=== PATIENT | female | born 1940 | race Caucasian/White ===

== ENCOUNTER 2022-01-01 10:57 | Inpatient (IN) | payer MEDICARE ==
[2022-01-01 11:48] LABS: #Eosinphils 0.1 10x3/uL (0.0-0.5); #Monocytes 0.7 10x3/uL (0.0-1.1); #Neutrophils 6.8 10x3/uL (1.5-8.4); %Basophils 0.3 % (0.0-2.0); %Eosinophils 0.6 % (0.0-6.0); %Lymphocytes 16.1 % (18.0-47.0); %Monocytes 7.8 % (0.0-10.0); %Neutrophils 74.8 % (40.0-75.0); Hemoglobin 9.2 g/dL (12.0-15.5); Mean Corpuscular HGB CONC 31.6 g/dL (32.0-36.0); Mean Corpuscular Volume 91.8 fl (81.6-98.3); Mean Platelet Volume 11.2 fl (7.4-10.4); Platelet Count 150 10x3/uL (150-450); RBC Distribution Width 17.1 % (11.5-14.5); Red Blood Cell (RBC) Count 3.17 10x6/uL (3.90-5.03); White Blood Cell (WBC) Count 9.1 10x3/uL (3.5-10.5)
[2022-01-01 12:06] LABS: ALT (SGPT) 17 U/L (8-55); AST (SGOT) 37 U/L (5-34); Albumin 3.4 g/dL (3.4-4.8); Alkaline Phosphatase 142 U/L (40-110); Anion Gap 14 mmol/L (10-20); BUN (Urea Nitrogen) 32 mg/dL (9.8-20.1); Bilirubin, Total 1.3 mg/dL (0.2-1.2); CK (CPK) 86 U/L (29-168); Calc. Creatinine Clearance 0 mL/min (70-130); Calcium 8.9 mg/dL (7.8-10.44); Carbon Dioxide 24 mmol/L (23-31); Chloride 106 mmol/L (98-107); Estimated GFR 27; Globulin 3.6 g/dL (2.4-3.5); Glucose 86 mg/dL (83-110); Potassium 4.5 mmol/L (3.5-5.1); Sodium 139 mmol/L (136-145)
[2022-01-01 12:33] LABS: CKMB 1.8 ng/mL (0-6.6)
[2022-01-01 12:48] LABS: Bilirubin Neg (Negative); Blood, Urine 25 (Negative); Clarity Slightly Cloudy (Clear); Glucose, Urine (Dipstick) Normal (Negative); Ketone, Urine Negative (Negative); Leukocyte 500 (Negative); Nitrite Positive (Negative); Protein, Urine (Dipstick) Negative (Neg-Trace)
[2022-01-01 13:02] LABS: Bacteria/HPF 4+ HPF (None Seen); Mucous/LPF 1+ LPF (<2+); WBC/HPF 21-50 HPF (0-3)
[2022-01-01] MEDS ORDERED: cefTRIAXone\\ROCEPHIN 1 GM VIAL ONE (13:41)
[2022-01-01] MEDS ORDERED: Ondansetron ODT 4 MG TAB PO PRN (16:00)
[2022-01-01 16:33] LABS: SARS-CoV-2 NAA Rapid Test Not Detected (NotDetected)
[2022-01-01 20:31] VITALS: BMI 28.2
[2022-01-02] MEDS: traZODone HCl 50 MG TAB PO SCH ×2 (00:51→02:45)
[2022-01-02 06:49] LABS: #Basophils 0.1 10x3/uL (0.0-0.2); #Eosinphils 0.1 10x3/uL (0.0-0.5); #Monocytes 0.8 10x3/uL (0.0-1.1); #Neutrophils 6.9 10x3/uL (1.5-8.4); %Basophils 0.5 % (0.0-2.0); %Eosinophils 1.4 % (0.0-6.0); %Lymphocytes 15.2 % (18.0-47.0); %Monocytes 8.3 % (0.0-10.0); %Neutrophils 74.3 % (40.0-75.0); Hemoglobin 9.9 g/dL (12.0-15.5); Mean Corpuscular HGB CONC 30.7 g/dL (32.0-36.0); Mean Corpuscular Hemoglobin 28.7 pg (27.0-33.0); Mean Corpuscular Volume 93.3 fl (81.6-98.3); Mean Platelet Volume 11.3 fl (7.4-10.4); Platelet Count 151 10x3/uL (150-450); RBC Distribution Width 17.2 % (11.5-14.5); Red Blood Cell (RBC) Count 3.45 10x6/uL (3.90-5.03); White Blood Cell (WBC) Count 9.3 10x3/uL (3.5-10.5)
[2022-01-02 10:51] LABS: Anion Gap 13 mmol/L (10-20); BUN (Urea Nitrogen) 27 mg/dL (9.8-20.1); Calc. Creatinine Clearance 37 mL/min (70-130); Calcium 9.7 mg/dL (7.8-10.44); Carbon Dioxide 24 mmol/L (23-31); Chloride 106 mmol/L (98-107); Estimated GFR 39; Glucose 80 mg/dL (83-110); Potassium 4.2 mmol/L (3.5-5.1); Sodium 139 mmol/L (136-145)
[2022-01-02] MEDS: Ferrous Sulfate 325 MG TAB PO SCH (13:47)
[2022-01-02] MEDS: cefTRIAXone\\ROCEPHIN 1 GM in Sodium Chloride 0.9% 100 ML IVPB SCH (15:53)
[2022-01-02] MEDS: Apixaban 2.5 MG TAB PO SCH (21:21)
[2022-01-02] MEDS: Atorvastatin Calcium 20 MG TAB PO SCH (21:21)
[2022-01-02] MEDS ORDERED: diphenhydrAMINE 25 MG CAP PO PRN (23:33)
[2022-01-03] MEDS: Acetaminophen 325 MG TAB PO PRN ×3 (04:34→15:09)
[2022-01-03 04:49] LABS: #Eosinphils 0.2 10x3/uL (0.0-0.5); #Monocytes 0.6 10x3/uL (0.0-1.1); %Basophils 0.5 % (0.0-2.0); %Eosinophils 2.5 % (0.0-6.0); %Monocytes 7.5 % (0.0-10.0); %Neutrophils 71.3 % (40.0-75.0); Hemoglobin 9.6 g/dL (12.0-15.5); Mean Corpuscular HGB CONC 31.9 g/dL (32.0-36.0); Mean Corpuscular Volume 90.9 fl (81.6-98.3); Platelet Count 159 10x3/uL (150-450); RBC Distribution Width 16.9 % (11.5-14.5); Red Blood Cell (RBC) Count 3.31 10x6/uL (3.90-5.03); White Blood Cell (WBC) Count 8.4 10x3/uL (3.5-10.5)
[2022-01-03 05:18] LABS: Anion Gap 14 mmol/L (10-20); BUN (Urea Nitrogen) 24 mg/dL (9.8-20.1); Calc. Creatinine Clearance 38 mL/min (70-130); Calcium 8.9 mg/dL (7.8-10.44); Carbon Dioxide 22 mmol/L (23-31); Chloride 104 mmol/L (98-107); Estimated GFR 40; Glucose 90 mg/dL (83-110); Potassium 4.2 mmol/L (3.5-5.1); Sodium 136 mmol/L (136-145)
[2022-01-03] MEDS: Levothyroxine Sodium 75 MCG TAB PO SCH (05:43)
[2022-01-03] MEDS: Losartan 25 MG TAB PO SCH (09:17)
[2022-01-03] MEDS: Calcitriol 0.25 MCG CAP PO SCH (09:18)
[2022-01-03] MEDS: Amlodipine 5 MG TAB PO SCH (09:18)
[2022-01-03] MEDS: Torsemide 20 MG TAB PO SCH (09:18)
[2022-01-03] MEDS: Apixaban 2.5 MG TAB PO SCH ×2 (09:19→20:14)
[2022-01-03] MEDS: cefTRIAXone\\ROCEPHIN 1 GM in Sodium Chloride 0.9% 100 ML IVPB SCH (15:15)
[2022-01-03] MEDS: Atorvastatin Calcium 20 MG TAB PO SCH (20:14)
[2022-01-04] MEDS ORDERED: traZODone HCl 50 MG TAB PO SCH (00:30)
[2022-01-04] MEDS: Levothyroxine Sodium 75 MCG TAB PO SCH (05:39)
[2022-01-04] MEDS: Calcitriol 0.25 MCG CAP PO SCH (09:25)
[2022-01-04] MEDS: Apixaban 2.5 MG TAB PO SCH (09:25)
[2022-01-04] MEDS: Torsemide 20 MG TAB PO SCH (09:26)
[2022-01-04] MEDS: Losartan 25 MG TAB PO SCH (09:26)
[2022-01-04] MEDS: Amlodipine 5 MG TAB PO SCH (09:26)
[2022-01-04] MEDS: Ferrous Sulfate 325 MG TAB PO SCH (12:40)
[2022-01-04 16:44] VITALS: BP 123/55; TEMP 97.6
[2022-01-07] MEDS ORDERED: Ergocalciferol 1.25 MG(50,000 UNITS) CAP PO SCH (09:00)
== END 2022-01-04 17:10 | disposition home health service (06) | DRG 690 ==
LOC: CSHERS 10:57 → CSHTELE 19:41 → OBSVTOIN 01-03 14:22
PROVIDERS: ADMIT Internal Medicine; ATTEND Internal Medicine
DX: N39.0 Urinary tract infection, site not specified (principal); I50.20 Unspecified systolic (congestive) heart failure; I13.0 Hypertensive heart and chronic kidney disease with heart failure and stage 1 through stage 4 chronic kidney disease, or unspecified chronic kidney disease; G93.49 Other encephalopathy; E78.5 Hyperlipidemia, unspecified; E03.9 Hypothyroidism, unspecified; M10.9 Gout, unspecified; I48.91 Unspecified atrial fibrillation; I25.10 Atherosclerotic heart disease of native coronary artery without angina pectoris; N18.30 Chronic kidney disease, stage 3 unspecified; F32.A Depression, unspecified; Z20.822 Contact with and (suspected) exposure to COVID-19; Z79.01 Long term (current) use of anticoagulants; Z79.899 Other long term (current) drug therapy; Z90.49 Acquired absence of other specified parts of digestive tract; Z90.710 Acquired absence of both cervix and uterus
CPT/HCPCS: 36415; 51701; 70450; 71045; 72125; 80048; 80053; 81003; 81015; 82550; 82553; 83605; 83880; 84484; 85025; 87077; 87086; 87186; 93005; 96365; 96376; G0378; J0696; J3490; U0002